=== PATIENT | male | born 1995 | race Caucasian/White ===

== ENCOUNTER 2022-04-18 13:47 | Emergency (ER) | payer SELFPAY ==
[2022-04-18] VITALS (17 sets, daily range): BP systolic 118–139; BP diastolic 77–89; PULSE 60–77; RESP 4–26; TEMP 36.6; O2SAT 92–98; BMI 19.0
--- NOTE | 2022-04-18 13:58 | ECG_ITS ---
[facility] Test Date: 2022-04-18 Pat Name: Toan Kwong Department: Room: Gender: Male Planning Lead: : 1995 Requested By: Celeste Roberson Order Number: [id number] Gann MD: Gregorio Sun M.D. Measurements Intervals [place] Rate: 70 P: 65 MA: 128 QRS: 93 QRSD: 89 T: 71 QT: 379 QTc: 411 Interpretive Statements SINUS RHYTHM BORDERLINE RIGHT AXIS DEVIATION [QRS AXIS > 90] MODERATE T-WAVE ABNORMALITY, CONSIDER ANTERIOR ISCHEMIA [-0.1+ mV T-WAVE IN V3/V4] No previous ECG available for comparison Electronically Signed On 04-18-2022 17:27:29 ONLINE MARKETING COORDINATOR by Gregorio Sun M.D. [id number] f
--- NOTE | 2022-04-18 14:07 | XRR_ITS ---
PROCEDURE INFORMATION: Exam: XR Chest Exam date and time: 04/18/2022 2:21 PM Age: 26 years old Clinical indication: Pain; Angina pectoris; Additional info: Chest pain TECHNIQUE: Imaging protocol: Radiologic exam of the chest. Views: 1 view. COMPARISON: No relevant prior studies available. FINDINGS: Lungs: Unremarkable. No consolidation. Pleural spaces: Unremarkable. No pleural effusion. No pneumothorax. Heart/Mediastinum: Unremarkable. No cardiomegaly. Bones/joints: Unremarkable for age. XR/XR chest 1V portable [id number] IMPRESSION: Negative chest
--- NOTE | 2022-04-18 14:21 | W.ED.CHESTPA ---
HPI - Chest Pain General: Chief Complaint: Chest Pain Stated Complaint: alana cyr Time Seen by Provider: 04/18/22 14:04 Source: patient Mode of arrival: ambulatory Limitations: no limitations History of Present Illness: Patient is a 26-year-old male who presents to ED today for evaluation of chest pain, nausea, vomiting. Patient states symptoms initially began on Saturday after eating. He felt like he got something stuck in his throat. He states he did feel like the sensation moved down but ever since then had intermittent pains in his chest with radiation into his left arm. He has also had several episodes of nausea and vomiting. He initially had some diarrhea but this has resolved. He reports pain as a tightness in his chest. He is also having a little bit of upper abdominal discomforts. He does report some previous symptoms that he attributes to acid reflux/GERD. Patient states he was concerned as he had a grandfather that at the age of 34 from a reported heart attack. He apparently was seen recently at a walk-in facility and had a EKG and CXR performed which were normal. Patient denies any risk factors for PE. Patient denies orthopnea, PND, lower extremity swelling, calf pain. No fevers. No recent illness. MD complaint: chest pain Onset (ago): day(s) Timing of current episode: episodic Pain location: substernal, left chest, epigastric and other (LUQ) Pain radiation: left arm Relieving factors: nothing Exacerbating factors: eating Associated symptoms: Reports abdominal pain, nausea and vomiting; Deny dyspnea, palpitations or syncope Treatment prior to arrival: none Risk Factors: Coronary artery disease risk factors: family history of CAD before age 50 Thoracic aortic dissection risk factors: none Review of Systems Eyes: Denies: change in vision, blurry vision, photophobia, floaters or seeing flashes ENMT: Denies: throat pain, odynophagia, ear or mastoid pain, nasal discharge or nasal congestion Card: Reports: chest pain; Denies: palpitations, irregular heart rhythm, edema, swelling of feet/ankles, lightheadedness, syncope, pre-syncope, dyspnea on exertion, orthopnea, leg pain with exertion or acrocyanosis Resp: Denies: dyspnea, productive cough, non-productive cough, wheezing, pain on inspiration, hemoptysis or chest congestion GI: Reports: abdominal pain, nausea, vomiting and diarrhea (a few days ago-resolved); Denies: hematemesis or change in bowel habits : Denies: flank pain, dysuria or hematuria Musc: Denies: neck pain, back pain, extremity pain or joint pain Skin/Breast: Denies: rash Neuro: Denies: headache(s), numbness in extremities, weakness in extremities, sensory changes, dizziness or confusion Physical Exam Const: COMMON NORMALS: no acute distress, average body habitus, patient oriented x3, no limitations, healthy appearing, alert and well nourished GENERAL APPEARANCE: cooperative ORIENTATION/CONSCIOUSNESS: Yes awake, Yes oriented to person, Yes oriented to place and Yes oriented to time HENMT: COMMON NORMALS: normocephalic and atraumatic HEAD & SCALP: normal to inspection, normocephalic and atraumatic Neck/C-Spine: COMMON NORMALS: full ROM, no lymphadenopathy and no meningeal signs GENERAL: Yes normal visual inspection Chest: COMMONS NORMALS: normal inspection of the chest and normal palpation of entire chest wall Resp: COMMON NORMALS: normal respiratory effort and clear to auscultation bilaterally AUSCULTATION: clear to auscultation bilaterally Cardio: COMMON NORMALS: regular rate and regular rhythm RATE: regular rate RHYTHM: regular rhythm GI: COMMON NORMALS: Normal to inspection, nondistended, normoactive bowel sounds present, Soft to palpation, No hepatosplenomegaly present and no masses INSPECTION: Yes normal to inspection AUSCULTATION: Yes normoactive bowel sounds PALPATION: Yes Soft to palpation, Yes Tenderness to palpation present (GI) (upper abdomen ), No Guarding due to palpation present (GI), No Rigid due to palpation and Yes No hepatosplenomegaly present : COMMON NORMALS: Yes no CVA tenderness BLADDER/KIDNEY EXAM: Yes no CVA tenderness Back/Pelvis: COMMON NORMALS: no CVA tenderness, thoracic and lumbar spine normal to inspection, no thoracic nor lumbar tenderness and thoraco-lumbar ROM normal Extremity: COMMON NORMALS: normal to inspection and full ROM GENERAL: Yes normal exam except as noted Neuro: MARIBELL COMA SCALE: document GCS findings Maribell coma scale eye opening: Spontaneous [place]ell coma scale verbal response: Orientated [place] coma scale motor response: Obey commands [place] coma scale total score: 15 COMMON NORMALS: patient oriented x3, moves all extremities, no focal motor deficits, no sensory deficits noted and gait normal SENSORIUM/ORIENTATION: Yes alert, Yes oriented to person, Yes oriented to place and Yes oriented to time MENINGEAL SIGNS: Yes no meningeal signs Skin: COMMON NORMALS: no rashes or lesions noted GENERAL SKIN EXAM: no rashes or lesions noted Course Vital Signs: Vital signs: Vital Signs Temperature 97.8 F 04/18/22 13:50 Pulse Rate 62 04/18/22 15:30 Respiratory Rate 6 L 04/18/22 15:30 Blood Pressure 120/83 04/18/22 15:30 Pulse Oximetry 94 04/18/22 15:30 Oxygen Delivery Me thod 04/18/22 14:35 MDM - Chest Pain Medical Decision Making Patient feels like the GI cocktail given here had did vastly improve his symptoms. After speaking to patient further he did have an echocardiogram at some point roughly around the age of 15 that was reportedly normal. EKG here showing no acute ischemia. Troponins are negative. Vital signs are stable. Remainder of blood work is unremarkable. Patient states he did start some Prilosec 1 to 2 days ago. Recommend he continues this medication and begins taking an H2 fernanda as well. Recommend follow-up with his primary care provider in the next 1 to 2 weeks if symptoms persist. Strict return ED precautions given. Lab Data 04/18/22 14:25 04/18/22 14:25 Radiology Impressions Chest X-Ray 04/18/22 14:07 IMPRESSION: Negative chest Laboratory Results WBC 6.3 10^3/uL (4.0-10.0) 04/18/22 14:25 RBC 5.23 10^6/uL (4.1-5.3) 04/18/22 14:25 Hgb 16.4 g/dL (11.7-16.6) 04/18/22 14:25 Hct 44.6 % (42.0-52.0) 04/18/22 14:25 MCV 85.3 fl (80-94) 04/18/22 14:25 MCH 31.4 pg (28.0-34.0) 04/18/22 14:25 MCHC 36.8 g/dL (30.0-36.0) H 04/18/22 14:25 RDW 11.1 % (12.1-15.1) L 04/18/22 14:25 Plt Count 383 10^3/cmm (130-400) 04/18/22 14:25 MPV 9.3 fL (7.4-10.4) 04/18/22 14:25 Neut % (Auto) 60.3 % 04/18/22 14:25 Lymph % (Auto) 30.3 % 04/18/22 14:25 [place] % (Auto) 7.9 % 04/18/22 14:25 Eos % (Auto) 0.3 % 04/18/22 14:25 Baso % (Auto) 0.9 % 04/18/22 14:25 Neut # (Auto) 3.81 10^3/uL (1.8-7.7) 04/18/22 14:25 Lymph # (Auto) 1.9 10^3/uL (0.8-4.8) 04/18/22 14:25 [place] # (Auto) 0.5 10^3/uL (0.2-0.9) 04/18/22 14:25 Eos # (Auto) 0.0 10^3/uL (0.0-0.8) 04/18/22 14:25 Baso # (Auto) 0.1 10^3/uL (0.0-0.1) 04/18/22 14:25 Nucleated RBC % (auto) 0 % 04/18/22 14:25 Nucleated RBCs # 0.0 /100WBC 04/18/22 14:25 Sodium 140 mmol/L (136-145) 04/18/22 14:25 Potassium 3.6 mmol/L (3.5-5.1) 04/18/22 14:25 Chloride 101 mmol/L (98-107) 04/18/22 14:25 Carbon Dioxide 26 mmol/L (22-29) 04/18/22 14:25 Anion Gap 16.6 (5-19) 04/18/22 14:25 BUN 8 mg/dL (6-20) 04/18/22 14:25 Creatinine 0.9 mg/dL (0.7-1.2) 04/18/22 14:25 GFR Calculation 100.5 mL/min (90-130) 04/18/22 14:25 Glucose 111 mg/dL (65-115) 04/18/22 14:25 Calculated Osmolality 289 mOsm/kg (285-295) 04/18/22 14:25 Calcium 10.1 mg/dL (8.5-10.5) 04/18/22 14:25 Total Bilirubin 0.9 mg/dL (0.15-1.2) 04/18/22 14:25 AST 16 U/L (0-40) 04/18/22 14:25 ALT 16 U/L (0-41) 04/18/22 14:25 Alkaline Phosphatase 57 U/L (40-130) 04/18/22 14:25 Troponin T Baseline 6 ng/L (0-15) 04/18/22 14:25 Total Protein 7.8 g/dL (6.6-8.7) 04/18/22 14:25 Albumin 4.9 g/dL (3.5-5.2) 04/18/22 14:25 Globulin 2.9 g/dL (1.3-4.6) 04/18/22 14:25 Lipase 15 U/L (13-60) 04/18/22 14:25 Discharge Plan Discharge Patient Disposition: Home Clinical Impression: Chest pain due to GERD Condition: Stable Prescriptions: No Action ondansetron HCl 4 mg tablet 4 mg PO Q6H PRN (Reason: Nausea) omeprazole 20 mg Capsule,Delayed Release(Dr/Ec) 20 mg PO DAILY Discharge Orders: Discharge ED (Routine); Ordered 04/18/22 Ordered By: Celeste Roberson Coding Level of Care Code ED Emergency Department Rn for Bri Bedolla
[2022-04-18] MEDS: lidocaine 2% viscous 15 ML, aluminum-mag hydrox-simethicon 30 ML, sucralfate oral liq 1 GM PO (14:42)
[2022-04-18 14:56] LABS: Basophils # 0.1 10^3/uL (0.0-0.1); Basophils % 0.9 %; Eosinophils % 0.3 %; Hematocrit 44.6 % (42.0-52.0); Hemoglobin 16.4 g/dL (11.7-16.6); Lymphocytes # 1.9 10^3/uL (0.8-4.8); Lymphocytes % 30.3 %; Mean Corpuscular HGB Conc 36.8 g/dL (30.0-36.0); Mean Corpuscular Hemoglobin 31.4 pg (28.0-34.0); Mean Corpuscular Volume 85.3 fl (80-94); Mean Platelet Volume 9.3 fL (7.4-10.4); Monocytes # 0.5 10^3/uL (0.2-0.9); Monocytes % 7.9 %; Neutrophils # 3.81 10^3/uL (1.8-7.7); Neutrophils % 60.3 %; Nucleated Red Blood Cells % 0 %; Platelet Count 383 10^3/cmm (130-400); Red Blood Count 5.23 10^6/uL (4.1-5.3); Red Cell Distribution Width 11.1 % (12.1-15.1); White Blood Count 6.3 10^3/uL (4.0-10.0)
[2022-04-18 15:04] LABS: Troponin(5th) Baseline 6 ng/L (0-15)
[2022-04-18 15:06] LABS: Alanine Aminotransferase 16 U/L (0-41); Albumin Level 4.9 g/dL (3.5-5.2); Alkaline Phosphatase 57 U/L (40-130); Anion Gap 16.6 (5-19); Aspartate Amino Transferase 16 U/L (0-40); Blood Urea Nitrogen 8 mg/dL (6-20); Calcium 10.1 mg/dL (8.5-10.5); Carbon Dioxide 26 mmol/L (22-29); Chloride 101 mmol/L (98-107); Creatinine Clr Calc Pharmacy 109.7583; Globulin 2.9 g/dL (1.3-4.6); Glomerular Filtration Rate 100.5 mL/min (90-130); Glucose 111 mg/dL (65-115); Lipase 15 U/L (13-60); Osmolality Calculated 289 mOsm/kg (285-295); Potassium 3.6 mmol/L (3.5-5.1); Sodium 140 mmol/L (136-145); Total Bilirubin 0.9 mg/dL (0.15-1.2); Total Protein 7.8 g/dL (6.6-8.7)
== END 2022-04-18 16:28 | disposition home or self-care (01) ==
PROVIDERS: Emergency Provider Physician Assistant
DX: K21.9 Gastro-esophageal reflux disease without esophagitis (principal)
CPT/HCPCS: 71045; 80053; 83690; 84484; 85025; 93005; 99285

== ENCOUNTER 2022-08-03 01:05 | Inpatient (IN) | payer SELFPAY ==
[2022-08-03] VITALS (46 sets, daily range): BP systolic 112–137; BP diastolic 56–81; PULSE 54–74; RESP 9–29; TEMP 36.4–37.1; O2SAT 95–99; BMI 19.0
--- NOTE | 2022-08-03 01:11 | ED_ITS ---
HPI - General Adult General: Chief complaint: Recheck/Abnormal Lab/Rx Stated complaint: High blood suger Time Seen by Provider: 08/03/22 01:08 History of Present Illness: 27-year-old male patient comes in today for complaints of increased thirst and urination for 1 week. Tonight he was at some family's house and they checked his blood glucose and it showed high on the reader. Family encouraged him to come in to be evaluated for concerns of ketoacidosis. Patient reports some in creased thirst and some lethargy for the last week. Patient was spilling some ketones in his urine as reported by family. Associated symptoms: Deny chest pain, dyspnea, headache(s), nausea, rash or vomiting Review of Systems General: Reports: 10 or more systems reviewed and unremarkable except in HPI and below Const: Denies: fever(s) or chills Card: Denies: chest pain Resp: Denies: dyspnea GI: Denies: nausea, vomiting, diarrhea or constipation : Denies: difficulty urinating Musc: Denies: neck pain or back pain Skin/Breast: Denies: rash Neuro: Denies: headache(s) Endo: Reports: polyuria and polydipsia Physical Exam Const: COMMON NORMALS: alert HENMT: COMMON NORMALS: normocephalic HEAD & SCALP: normocephalic Neck/C-Spine: COMMON NORMALS: full ROM Resp: COMMON NORMALS: normal respiratory effort and clear to auscultation bilaterally AUSCULTATION: clear to auscultation bilaterally Cardio: COMMON NORMALS: regular rate and regular rhythm RATE: regular rate RHYTHM: regular rhythm GI: COMMON NORMALS: non-tender Back/Pelvis: COMMON NORMALS: thoracic and lumbar spine normal to inspection Extremity: COMMON NORMALS: full ROM Neuro: SENSORIUM/ORIENTATION: Yes alert Skin: COMMON NORMALS: turgor normal GENERAL SKIN EXAM: turgor normal Course ED course: 141, reviewed ABG and ketones with Dr. Luque. He recommended infusing 2 L of IV fluids. I had already given 6 units subcu of Humalog. We will await r sherif of labs and consider further treatment then. Vital Signs: Vital signs: Vital Signs Temperature 98.7 F 08/03/22 01:10 Pulse Rate 67 08/03/22 01:17 Respiratory Rate 16 08/03/22 01:17 Blood Pressure 137/81 08/03/22 01:17 Pulse Oximetry 96 08/03/22 01:17 Oxygen Delivery Me thod Room Air 08/03/22 01:17 MDM - General Adult Medical Decision Making 27-year-old male patient comes in today for complaints of increased thirst and increased urine output and a elevated blood glucose on a home meter. On exam patient appears nontoxic. Abdomen soft nontender. Skin is warm and dry. Vital signs are normal. Initial blood glucose by fingerstick was 552. Differential diagnosis includes but not limited to DKA, hyperglycemia, pancreatitis. Blood glucose was 505 on lab, gap was 27, patient was given 2 L of IV fluids and 6 units of insulin per subcutaneous. Patient was monitored ABGs noted to 7.27, and serum ketones was positive. Reviewed with Dr. Luque who recommended admission. Talk with Dr. Osborn she agreed to plan for admission and recommended ICU bed with insulin drip. Patient was started on insulin drip and agreed to plan for treatment. Lab Data 08/03/22 01:20 08/03/22 01:20 Laboratory Results WBC 7.0 10^3/uL (4.0-10.0) 08/03/22 01:20 RBC 5.40 10^6/uL (4.1-5.3) H 08/03/22 01:20 Hgb 16.2 g/dL (11.7-16.6) 08/03/22 01:20 Hct 45.1 % (42.0-52.0) 08/03/22 01:20 MCV 83.5 fl (80-94) 08/03/22 01:20 MCH 30.0 pg (28.0-34.0) 08/03/22 01:20 MCHC 35.9 g/dL (30.0-36.0) 08/03/22 01:20 RDW 11.7 % (12.1-15.1) L 08/03/22 01:20 Plt Count 342 10^3/cmm (130-400) 08/03/22 01:20 MPV 9.7 fL (7.4-10.4) 08/03/22 01:20 Neut % (Auto) 45.0 % 08/03/22 01:20 Lymph % (Auto) 44.0 % 08/03/22 01:20 [place] % (Auto) 7.8 % 08/03/22 01:20 Eos % (Auto) 1.9 % 08/03/22 01:20 Baso % (Auto) 1.0 % 08/03/22 01:20 Neut # (Auto) 3.14 10^3/uL (1.8-7.7) 08/03/22 01:20 Lymph # (Auto) 3.1 10^3/uL (0.8-4.8) 08/03/22 01:20 [place] # (Auto) 0.5 10^3/uL (0.2-0.9) 08/03/22 01:20 Eos # (Auto) 0.1 10^3/uL (0.0-0.8) 08/03/22 01:20 Baso # (Auto) 0.1 10^3/uL (0.0-0.1) 08/03/22 01:20 Nucleated RBC % (auto) 0 % 08/03/22 01:20 Nucleated RBCs # 0.0 /100WBC 08/03/22 01:20 Specimen Type Arterial 08/03/22 01:26 Sample Site Radial, right 08/03/22 01:26 ABG pH 7.29 (7.35-7.45) L 08/03/22 01:26 ABG pCO2 38.4 mmHg (35-45) 08/03/22 01:26 ABG pO2 82.0 mmHg (80.0-100.0) 08/03/22 01:26 ABG HCO3 18.3 mmol/L (22-26) L 08/03/22 01:26 ABG Base Excess -7.7 mmol/L (-2.0-2.0) L 08/03/22 01:26 [place]mond Test Pos 08/03/22 01:26 Hematocrit 50.9 % (42-52) 08/03/22 01:26 O2 Delivery Device None 08/03/22 01:26 FiO2 21.0 % 08/03/22 01:26 Novelty Balloon Assembler And Packer ID [email or web address] 08/03/22 01:26 Sodium 131 mmol/L (136-145) L 08/03/22 01:20 Potassium 4.1 mmol/L (3.5-5.1) 08/03/22 01:20 Chloride 90 mmol/L (98-107) L 08/03/22 01:20 Carbon Dioxide 18 mmol/L (22-29) L 08/03/22 01:20 Anion Gap 27.1 (5-19) H 08/03/22 01:20 BUN 18 mg/dL (6-20) 08/03/22 01:20 Creatinine 0.8 mg/dL (0.7-1.2) 08/03/22 01:20 GFR Calculation 114.3 mL/min (90-130) 08/03/22 01:20 Glucose 505 mg/dL (65-115) H* 08/03/22 01:20 POC Glucose 552 mg/dL (70-110) H* 08/03/22 01:13 Calculated Osmolality 296 mOsm/kg (285-295) H 08/03/22 01:20 Calcium 9.7 mg/dL (8.5-10.5) 08/03/22 01:20 Total Bilirubin 0.5 mg/dL (0.15-1.2) 08/03/22 01:20 AST 16 U/L (0-40) 08/03/22 01:20 ALT 30 U/L (0-41) 08/03/22 01:20 Alkaline Phosphatase 81 U/L (40-130) 08/03/22 01:20 Total Protein 7.7 g/dL (6.6-8.7) 08/03/22 01:20 Albumin 5.0 g/dL (3.5-5.2) 08/03/22 01:20 Globulin 2.7 g/dL (1.3-4.6) 08/03/22 01:20 Lipase 21 U/L (13-60) 08/03/22 01:20 Urine Color Light yellow (Yellow) 08/03/22 01:39 Urine Appearance Clear (CLEAR) 08/03/22 01:39 Urine pH 5 (5-7) 08/03/22 01:39 Ur Specific [place] 1.020 (1.005-1.030) 08/03/22 01:39 Urine Protein Neg (Negative) 08/03/22 01:39 Urine Glucose (UA) 4+ (Normal) H 08/03/22 01:39 Urine Ketones 3+ (Negative) H 08/03/22 01:39 Urine Blood Neg (Negative) 08/03/22 01:39 Urine Nitrate Negative (Negative) 08/03/22 01:39 Urine Bilirubin Neg (Negative) 08/03/22 01:39 Urine Urobilinogen Norm mg/dL (Negative) 08/03/22 01:39 Ur Leukocyte Esterase Negative (Negative) 08/03/22 01:39 Serum Ketones Positive (Negative) H 08/03/22 01:20 Discharge Plan Discharge Patient Disposition: Admitted As Inpatient Clinical Impression: DKA (diabetic ketoacidosis) Condition: Stable Coding Level of Care Code ED Stereoplotter Operator for Bri Bedolla
[2022-08-03 01:16] LABS: Glucose Point of Care 552 mg/dL (70-110)
[2022-08-03 01:28] LABS: Basophils # 0.1 10^3/uL (0.0-0.1); Eosinophils # 0.1 10^3/uL (0.0-0.8); Eosinophils % 1.9 %; Hematocrit 45.1 % (42.0-52.0); Hemoglobin 16.2 g/dL (11.7-16.6); Lymphocytes # 3.1 10^3/uL (0.8-4.8); Mean Corpuscular HGB Conc 35.9 g/dL (30.0-36.0); Mean Corpuscular Volume 83.5 fl (80-94); Mean Platelet Volume 9.7 fL (7.4-10.4); Monocytes # 0.5 10^3/uL (0.2-0.9); Monocytes % 7.8 %; Neutrophils # 3.14 10^3/uL (1.8-7.7); Nucleated Red Blood Cells % 0 %; Platelet Count 342 10^3/cmm (130-400); Red Cell Distribution Width 11.7 % (12.1-15.1)
[2022-08-03 01:34] LABS: ABG PCO2 38.4 mmHg (35-45); ABG PH Result 7.29 (7.35-7.45); Arterial Blood Gas Hematocrit 50.9 % (42-52); Base Excess ABG -7.7 mmol/L (-2.0-2.0); Blood Gas Allen Test Pos; Blood Gas Sample Type Arterial; HCO3 ABG 18.3 mmol/L (22-26)
[2022-08-03 01:35] LABS: Blood Gas Sample Site Radial, right
[2022-08-03] MEDS: insulin lispro 100 unit/1 mL 6 UNIT SUBCUT (01:37)
[2022-08-03] MEDS: sodium chloride 0.9% 1,000 ML 999 ML IV ×2 (01:37→01:54)
[2022-08-03 01:38] LABS: Ketone (Acetest) Serum Positive (Negative)
[2022-08-03 01:52] LABS: Add Urine Microscopic? NO; Charge for UA Resulting for Rev
[2022-08-03 01:56] LABS: Bilirubin Urine Neg (Negative); Blood Urine Neg (Negative); Glucose Urine UA 4+ (Normal); Ketones Urine 3+ (Negative); Nitrate Urine Negative (Negative); Protein Urine Neg (Negative); Urine Appearance Clear (CLEAR); Urine Color Light yellow (Yellow); pH Urine 5 (5-7)
[2022-08-03 01:57] LABS: Leukocyte Esterase Urine Negative (Negative); Urobilinogen Urine Norm (Negative)
[2022-08-03 02:15] LABS: Alanine Aminotransferase 30 U/L (0-41); Alkaline Phosphatase 81 U/L (40-130); Anion Gap 27.1 (5-19); Aspartate Amino Transferase 16 U/L (0-40); Blood Urea Nitrogen 18 mg/dL (6-20); Calcium 9.7 mg/dL (8.5-10.5); Carbon Dioxide 18 mmol/L (22-29); Chloride 90 mmol/L (98-107); Globulin 2.7 g/dL (1.3-4.6); Glomerular Filtration Rate 114.3 mL/min (90-130); Lipase 21 U/L (13-60); Osmolality Calculated 296 mOsm/kg (285-295); Potassium 4.1 mmol/L (3.5-5.1); Sodium 131 mmol/L (136-145); Total Bilirubin 0.5 mg/dL (0.15-1.2); Total Protein 7.7 g/dL (6.6-8.7)
[2022-08-03 02:17] LABS: Glucose 505 mg/dL (65-115)
--- NOTE | 2022-08-03 02:23 | PM.HP ---
Providers/Chief Complaint Chief Complaint: High blood suger History of Present Illness Toan Kwong is a 27 year old male with no significant past medical history presented to the ER today with complaint of high blood sugar. He has been feeling generally weak and fatigued with increasing thirst over the last few days. One of his family members had a glucometer and checked his blood sugar which read high. He has not had any nausea vomiting. Denies any chest pain. Denies diarrhea, denies shortness of breath. Family reported that patient was spilling ketones in his urine. He has been having increasing urination over the last 1 week as well. He has never been diagnosed with diabetes before. On arrival to ER 137/81, respirate 16, pulse 67, temperature 98.7, saturating 96% on room air. He did get initially 2 L normal saline bolus and 6 units of Humalog. Labs showed WBC 7.0, hemoglobin 16.2, platelets 342, initial gas 7.29/38.4/82, 18. Serum ketones are positive. Initial blood glucose on arrival 505. Sodium 131, chloride 90, potassium 4.1, anion gap 27.1, carbon oxide 18. Urine shows 4+ glucose 3+ ketones. Medications/Allergies Home Medications Medication Instructions Recorded Confirmed Last Taken Type omeprazole 20 mg capsule,delayed 20 mg PO DAILY 04/18/22 04/18/22 04/18/22 History release ondansetron HCl 4 mg tablet 4 mg PO Q6H PRN Nausea 04/18/22 04/18/22 04/18/22 History Allergies Allergy/AdvReac Type Severity Reaction Status Date / Time No Known Allergies Allergy Verified 08/03/22 01:17 Vitals/I&O/Wt Last Vital Signs Temp 98.7 F 08/03/22 01:10 Pulse 67 08/03/22 01:17 Resp 16 08/03/22 01:17 BP 137/81 08/03/22 01:17 Pulse Ox 96 08/03/22 01:17 O2 Del Method Room Air 08/03/22 01:17 Weight last 48 hrs Weight 63.503 kg Physical Exam Narrative: General: Alert oriented x3, patient seen laying in bed, no acute respiratory distress. HEENT: Normocephalic, atraumatic, EOMI, breathing on room air Cardio: Regular rate rhythm, normal S1-S2 Respiratory: Clear to auscultation bilaterally GI: Abdomen soft, nontender, bowel sounds + Behavior: Appropriate and cooperative Extremities: No edema Data 08/03/22 01:20 08/03/22 01:20 A&P Assessment and plan (1) DKA (diabetic ketoacidosis): (2) Hyperglycemia: (3) Diabetes mellitus: Plan #Hyperglycemia, new onset #DKA #New onset diabetes, most likely type I ? Check baseline chest x-ray, troponins, blood culture, urine culture ? Start insulin drip. Add dextrose to fluids once glucose less than 250 ? Anion gap is 27.1. Continue drip until gap is closed. ? Normal saline +20 of K at 150 cc/h ? Check hemoglobin A1c, lipid profile, TSH, cortisol level ? Check anti-URSULA 1 antibodies ? Start DKA protocol ? Administer an additional normal saline bolus. Patient did get 2 L bolus normal saline in the ER already. ? Glucose every hour as per protocol ? Zofran for nausea if needed ? BMP every 4 hours. ? Bicarb is 18 at this time. No need to start on bicarb drip. ? Admit to ICU ? Endocrinology referral at discharge - Will need to provide diabetic teaching PTD Full code SCDs, low risk, no need of dvt ppx Attestations Medical Necessity Statement*: Greater than 2 midnight stay for management of DKA, new onset diabetes in ICU setting Coding Level of Care Code G0425 (30 min) TH Encounter Time (min): 40 Patient seen via Telehealth in the acute care setting (hospital or ED location) by agreement and consent of patient or patient food service sales representatives. Telehealth technology used during the visit includes video and audio. This patient encounter is appropriate and reasonable under the circumstances given the patient?s particular presentation at this time. The patient has been advised of the potential risks and limitations of this mode of treatment (including but not limited to the absence of in-person examination at this time) and has agreed to be treated by an off-site physician for this visit. If deemed clinically necessary from this telehealth visit, or if condition or consent for telehealth visit changes, an in-person visit will be arranged. For this encounter, total time for the origination of telehealth care on this date is as shown. Diagnoses DKA (diabetic ketoacidosis) E11.10 Hyperglycemia R73.9 Diabetes mellitus E11.9
--- NOTE | 2022-08-03 02:31 | ECG_ITS ---
[facility] Test Date: 2022-08-03 Pat Name: Toan Kwong Department: Room: ICU06 Gender: Male Can Labeler: : 1995 Requested By: Lizzie Osborn Order Number: [id number] Sanjuanita MD: Gregorio Sun M.D. Measurements Intervals [place] Rate: 50 P: 55 WI: 131 QRS: 83 QRSD: 103 T: 49 QT: 461 QTc: 424 Interpretive Statements SINUS BRADYCARDIA MODERATE ST DEPRESSION [0.05+ mV ST DEPRESSION] Compared to ECG 04/18/2022 13:58:33 ST (T wave) deviation now present Sinus rhythm no longer present T-wave abnormality no longer present Possible ischemia no longer present Electronically Signed On 08-03-2022 10:28:17 CDT by Gregorio Sun M.D. [id number]
--- NOTE | 2022-08-03 02:31 | XRR_ITS ---
PROCEDURE INFORMATION: Exam: XR Chest Exam date and time: 08/03/2022 2:40 AM Age: 27 years old Clinical indication: Other: Dka; Additional info: Dka, baseline TECHNIQUE: Imaging protocol: Radiologic exam of the chest. Views: 1 view. COMPARISON: CR XR chest 1V portable [id number] 04/18/2022 2:21 PM FINDINGS: Lungs: Unremarkable. No consolidation. Pleural spaces: Unremarkable. No pleural effusion. No pneumothorax. Heart/Mediastinum: Unremarkable. No cardiomegaly. Bones/joints: Unremarkable. XR/XR chest 1V portable [id number] IMPRESSION: No acute findings.
[2022-08-03 02:33] LABS: Glucose Point of Care 446 mg/dL (70-110)
[2022-08-03] MEDS: insulin regular-human 250 UNIT in sodium chloride 0.9% 250 ML 11.5 UNIT IV (02:40)
[2022-08-03 03:17] LABS: Troponin(5th) Baseline 6 ng/L (0-15)
[2022-08-03 03:27] LABS: Procalcitonin 0.06 ng/mL (0-0.5); Thyroid Stimulating Hormone 4.09 uIU/mL (0.27-4.20)
[2022-08-03 03:30] LABS: Estmated Average Glucose 278; Hemoglobin A1C 11.3 % (4.0-6.0)
[2022-08-03] MEDS: sodium chlor 0.9% + KCl 20 mEq 20 MEQ/1,000 ML BAG 150 MEQ IV (03:32)
[2022-08-03 03:35] LABS: Phosphorus 3.5 mg/dL (2.5-4.5)
[2022-08-03 03:37] LABS: Magnesium 1.8 mg/dL (1.7-2.3)
[2022-08-03 03:43] LABS: Glucose Point of Care 318 mg/dL (70-110)
--- NOTE | 2022-08-03 04:31 | ECG_ITS ---
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 Measurements Intervals [place] Rate: 60 P: 72 UT: 155 QRS: 88 QRSD: 113 T: 50 QT: 438 QTc: 440 Interpretive Statements SINUS RHYTHM MODERATE INTRAVENTRICULAR CONDUCTION DELAY [110+ ms QRS DURATION] ST DEVIATION AND MODERATE T-WAVE ABNORMALITY, CONSIDER ANTERIOR ISCHEMIA [-0.1+ mV T-WAVE IN V3/V4] Compared to ECG 08/03/2022 02:40:49 Intraventricular conduction delay now present T-wave abnormality now present Possible ischemia now present Sinus bradycardia no longer present ST (T wave) deviation no longer present Electronically Signed On 08-03-2022 10:29:09 CDT by Gregorio Sun M.D. [email or web address]/store/[id number]
[2022-08-03 04:34] LABS: Anion Gap 17.4 (5-19); Blood Urea Nitrogen 15 mg/dL (6-20); Calcium 7.7 mg/dL (8.5-10.5); Carbon Dioxide 20 mmol/L (22-29); Chloride 104 mmol/L (98-107); Chol HDL Ratio 5.74 mg/dL (1.0-5.00); Cholesterol 155 mg/dL (0-200); Glomerular Filtration Rate 99.8 mL/min (90-130); Glucose 281 mg/dL (65-115); HDL Cholesterol 27 mg/dL (60-100); Osmolality Calculated 297 mOsm/kg (285-295); Potassium 3.4 mmol/L (3.5-5.1); Sodium 138 mmol/L (136-145); Triglycerides 418 mg/dL (0-150); VLDL Cholestrol Calculation 84 mg/dL (0-30)
[2022-08-03 04:37] LABS: Cortisol Random 7.14 ug/dL (2.47-19.5)
[2022-08-03 05:05] LABS: Troponin 5 2HR Delta 0 ABS# (0-10)
[2022-08-03 05:09] LABS: Glucose Point of Care 250 mg/dL (70-110)
[2022-08-03 05:11] LABS: LDL Cholesterol Direct 61 mg/dL (0-100)
[2022-08-03] MEDS: dextrose 5% 1,000 ML 150 ML IV (05:30)
[2022-08-03] MEDS: sodium chlor 0.9% + KCl 40 mEq 40 MEQ/1,000 ML BAG 150 MEQ IV (05:31)
[2022-08-03 05:57] LABS: Glucose Point of Care 181 mg/dL (70-110)
[2022-08-03 06:53] LABS: Glucose Point of Care 163 mg/dL (70-110)
[2022-08-03 07:05] LABS: Anion Gap 13.2 (5-19); Blood Urea Nitrogen 14 mg/dL (6-20); Calcium 7.9 mg/dL (8.5-10.5); Carbon Dioxide 22 mmol/L (22-29); Chloride 105 mmol/L (98-107); Glomerular Filtration Rate 159.3 mL/min (90-130); Glucose 155 mg/dL (65-115); Osmolality Calculated 288 mOsm/kg (285-295); Potassium 3.2 mmol/L (3.5-5.1); Sodium 137 mmol/L (136-145)
[2022-08-03 08:11] LABS: Glucose Point of Care 98 mg/dL (70-110)
[2022-08-03] MEDS: pantoprazole 40 mg SDV IVP (09:05)
[2022-08-03 09:16] LABS: Glucose Point of Care 88 mg/dL (70-110)
[2022-08-03 09:55] LABS: Glucose Point of Care 228 mg/dL (70-110)
[2022-08-03 10:29] LABS: Anion Gap 13.7 (5-19); Blood Urea Nitrogen 11 mg/dL (6-20); Calcium 7.5 mg/dL (8.5-10.5); Carbon Dioxide 23 mmol/L (22-29); Chloride 104 mmol/L (98-107); Glomerular Filtration Rate 133.3 mL/min (90-130); Glucose 175 mg/dL (65-115); Osmolality Calculated 288 mOsm/kg (285-295); Potassium 3.7 mmol/L (3.5-5.1); Sodium 137 mmol/L (136-145)
[2022-08-03 10:53] LABS: Glucose Point of Care 213 mg/dL (70-110)
--- NOTE | 2022-08-03 10:56 | ECG_ITS ---
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 Measurements Intervals [place] Rate: 62 P: 52 MA: 131 QRS: 83 QRSD: 105 T: 52 QT: 413 QTc: 420 Interpretive Statements SINUS RHYTHM NONSPECIFIC T-WAVE ABNORMALITY Compared to ECG 08/03/2022 05:09:30 Intraventricular conduction delay no longer present Possible ischemia no longer present T-wave abnormality still present Electronically Signed On 08-03-2022 13:07:23 CDT by Gregorio Sun M.D. [email or web address].[employer]/store/OM/[id number]
--- NOTE | 2022-08-03 11:07 | P.DS_ITS ---
Discharge Providers Date of Admission: 08/03/22 02:27 Date of Discharge: August 03, 2022 Attending Provider at Admission: Lizzie Osborn MD Attending Provider at Discharge: Geovanni Park MD Diagnoses at Discharge Discharge Diagnosis (1) DKA (diabetic ketoacidosis): Status: Acute (2) Hyperglycemia: Status: Acute (3) Diabetes mellitus: Status: Acute Reason for Visit Reason for Visit: High blood [facility] Hospital Course Hospital Course 27 year old male with no significant PMH came with c/o high blood sugar. Has also been feeling generalized weakness fatigue, excessive thirst increased urination, polyphagia, in the recent last few days, has also experienced about 10 pounds weight loss recently, one of his family members had a glucometer, which he used to check his fingerstick glucose which read as high, when he came to the ER he was found to be in DKA, was admitted for the management of the same, was on DKA protocol, once the anion gap closed, patient was transitioned to, long and short acting insulin, with appropriate bridge, upon discontinuing the insulin drip, at the time of discharge patient was, tolerating diet well, denied any nausea vomiting abdominal pain, he was discharged on metformin 500 mg p.o. twice daily, currently his HbA1c 11.3, which is greater than 9, he will possibly need insulin in near future for his diabetes. Patient triglyceride is also high:at 418, Possibly can be started on fenofibrate, and near future after obtaining a repeat T.G Level. He has been scheduled to see endocrine as outpatient, has been asked to maintain fingerstick glucose log at least with meals, and take it to the endocrine physician on appointment.Patient will also need a repeat HbA1c in 3 months. Overall responded well to above medical management and is being discharged in stable condition to home, will continue to see his PCP as outpatient. Physical Exam Const: COMMON NORMALS: patient oriented x3 HENMT: COMMON NORMALS: normocephalic, atraumatic and hearing grossly normal bilaterally HEAD & SCALP: normocephalic and atraumatic Resp: COMMON NORMALS: normal respiratory effort, No retractions, No use of accessory muscles and clear to auscultation bilaterally EFFORT & INSPECTION: Yes symmetric chest movement AUSCULTATION: clear to auscultation bilaterally Cardio: COMMON NORMALS: regular rate, regular rhythm, S1 normal heart sound present, S2 normal heart sound present, No gallops present (Cardio), No murmurs present (Cardio), No rub (Cardio) and Peripheral pulses 2+ throughout RATE: regular rate RHYTHM: regular rhythm HEART SOUNDS: S1 normal heart sound present and S2 normal heart sound present PERIPHERAL PULSES: Peripheral pulses 2+ throughout GI: COMMON NORMALS: Normal to inspection, nondistended, normoactive bowel sounds present, Soft to palpation, non-tender, No hepatosplenomegaly present and no masses AUSCULTATION: Yes normoactive bowel sounds PALPATION: Yes Soft to palpation and Yes No hepatosplenomegaly present RECTAL EXAM: Yes deferred Extremity: COMMON NORMALS: no clubbing, cyanosis or edema and no pedal edema Neuro: COMMON NORMALS: patient oriented x3 Discharge Data Studies Completed and Pending Completed Studies During Hospitalization Category Date Time Status XR chest 1V portable [id number] Stat Exams 08/03/22 02:31 Completed Pending at discharge Category Date Time Status BMP [Basic Metabolic Panel] Q4H Lab 08/03/22 14:31 Ordered BMP [Basic Metabolic Panel] Q4H Lab 08/03/22 18:31 Ordered BMP [Basic Metabolic Panel] Q4H Lab 08/03/22 22:31 Ordered BMP [Basic Metabolic Panel] Q4H Lab 08/04/22 02:31 Ordered BMP [Basic Metabolic Panel] Q4H Lab 08/04/22 06:31 Ordered Basic Metabolic Panel AM LABS Lab 08/04/22 04:00 Ordered Blood Culture Stat Lab 08/03/22 04:23 Results Complete Blood Count w/Auto AM LABS Lab 08/04/22 04:00 Ordered [id number] IA-2 Insulin AB Routine Lab 08/03/22 03:55 Received Sputum Culture and Gram Stain Stat Lab 08/03/22 02:31 Uncollected Urine Culture Stat Lab 08/03/22 01:39 Received Radiology Impressions Chest X-Ray 08/03/22 02:31 IMPRESSION: No acute findings. Laboratory Results WBC 7.0 10^3/uL (4.0-10.0) 08/03/22 01:20 RBC 5.40 10^6/uL (4.1-5.3) H 08/03/22 01:20 Hgb 16.2 g/dL (11.7-16.6) 08/03/22 01:20 Hct 45.1 % (42.0-52.0) 08/03/22 01:20 MCV 83.5 fl (80-94) 08/03/22 01:20 MCH 30.0 pg (28.0-34.0) 08/03/22 01:20 MCHC 35.9 g/dL (30.0-36.0) 08/03/22 01:20 RDW 11.7 % (12.1-15.1) L 08/03/22 01:20 Plt Count 342 10^3/cmm (130-400) 08/03/22 01:20 MPV 9.7 fL (7.4-10.4) 08/03/22 01:20 Neut % (Auto) 45.0 % 08/03/22 01:20 Lymph % (Auto) 44.0 % 08/03/22 01:20 [place] % (Auto) 7.8 % 08/03/22 01:20 Eos % (Auto) 1.9 % 08/03/22 01:20 Baso % (Auto) 1.0 % 08/03/22 01:20 Neut # (Auto) 3.14 10^3/uL (1.8-7.7) 08/03/22 01:20 Lymph # (Auto) 3.1 10^3/uL (0.8-4.8) 08/03/22 01:20 [place] # (Auto) 0.5 10^3/uL (0.2-0.9) 08/03/22 01:20 Eos # (Auto) 0.1 10^3/uL (0.0-0.8) 08/03/22 01:20 Baso # (Auto) 0.1 10^3/uL (0.0-0.1) 08/03/22 01:20 Nucleated RBC % (auto) 0 % 08/03/22 01:20 Nucleated RBCs # 0.0 /100WBC 08/03/22 01:20 Specimen Type Arterial 08/03/22 01:26 Sample Site Radial, right 08/03/22:26 ABG pH 7.29 (7.35-7.45) L 08/03/22:26 ABG pCO2 38.4 mmHg (35-45) 08/03/22 01: ABG pO2 82.0 mmHg (80.0-100.0) 08/03/22 01:26 ABG HCO3 18.3 mmol/L (22-26) L 08/03/22 01:26 ABG Base Excess -7.7 mmol/L (-2.0-2.0) L 08/03/22 01:26 [place] Test Pos 08/03/22 01:26 Hematocrit 50.9 % (42-52) 08/03/22 01:26 O2 Delivery Device None 08/03/22 01:26 FiO2 21.0 % 08/03/22 01:26 Secondary Teacher ID [email or web address] 08/03/22 01:26 Sodium 137 mmol/L (136-145) 08/03/22 10:00 Potassium 3.7 mmol/L (3.5-5.1) 08/03/22 10:00 Chloride 104 mmol/L (98-107) 08/03/22 10:00 Carbon Dioxide 23 mmol/L (22-29) 08/03/22 10:00 Anion Gap 13.7 (5-19) 08/03/22 10:00 BUN 11 mg/dL (6-20) 08/03/22 10:00 Creatinine 0.7 mg/dL (0.7-1.2) 08/03/22 10:00 GFR Calculation 133.3 mL/min (90-130) H 08/03/22 10:00 Glucose 175 mg/dL (65-115) H 08/03/22 10:00 POC Glucose 213 mg/dL (70-110) H 08/03/22 10:47 Estimat Average Glucose 278 08/03/22 01:20 Hemoglobin A1c 11.3 % (4.0-6.0) H 08/03/22 01:20 Calculated Osmolality 288 mOsm/kg (285-295) 08/03/22 10:00 Calcium 7.5 mg/dL (8.5-10.5) L 08/03/22 10:00 Phosphorus 3.5 mg/dL (2.5-4.5) 08/03/22 01:20 Magnesium 1.8 mg/dL (1.7-2.3) 08/03/22 01:20 Total Bilirubin 0.5 mg/dL (0.15-1.2) 08/03/22 01:20 AST 16 U/L (0-40) 06/09/23 01:20 ALT 30 U/L (0-41) 08/03/22 01:20 Alkaline Phosphatase 81 U/L (40-130) 08/03/22 01:20 Troponin T Baseline 6 ng/L (0-15) 08/03/22 01:20 Troponin T 120 Minute 6.00 ng/L (0-15) 08/03/22 03:55 Delta Troponin T 0 ABS# (0-10) 08/03/22 03:55 Troponin T Hi Sens 6Hr 6.70 ng/L (0-15) 08/03/22 08:16 Troponin T Hi Sens 6Hr Delta 0.70 ng/L (0-12) 08/03/22 08:16 Total Protein 7.7 g/dL (6.6-8.7) 08/03/22 01:20 Albumin 5.0 g/dL (3.5-5.2) 08/03/22 01:20 Globulin 2.7 g/dL (1.3-4.6) 08/03/22 01:20 Triglycerides 418 mg/dL (0-150) H 08/03/22 03:55 Cholesterol 155 mg/dL (0-200) 08/03/22 03:55 LDL Cholesterol Direct 61 mg/dL (0-100) 08/03/22 03:55 LDL Cholesterol, Calc Not Reportable 08/03/22 03:55 Total VLDL Cholesterol 84 mg/dL (0-30) H 08/03/22 03:55 HDL Cholesterol 27 mg/dL (60-100) L 08/03/22 03:55 Cholesterol/HDL Ratio 5.74 mg/dL (1.0-5.00) H 08/03/22 03:55 Lipase 21 U/L (13-60) 08/03/22 01:20 Procalcitonin Cancelled 08/03/22 03:55 TSH 4.09 uIU/mL (0.27-4.20) 08/03/22 01:20 Random Cortisol 7.14 ug/dL (2.47-19.5) 08/03/22 03:55 Urine Color Light yellow (Yellow) 08/03/22 01:39 Urine Appearance Clear (CLEAR) 08/03/22 01:39 Urine pH 5 (5-7) 08/03/22 01:39 Ur Specific [place] 1.020 (1.005-1.030) 08/03/22 01:39 Urine Protein Neg (Negative) 08/03/22 01:39 Urine Glucose (UA) 4+ (Normal) H 08/03/22 01:39 Urine Ketones 3+ (Negative) H 08/03/22 01:39 Urine Blood Neg (Negative) 08/03/22 01:39 Urine Nitrate Negative (Negative) 08/03/22 01:39 Urine Bilirubin Neg (Negative) 08/03/22 01:39 Urine Urobilinogen Norm mg/dL (Negative) 08/03/22 01:39 Ur Leukocyte Esterase Negative (Negative) 08/03/22 01:39 Serum Ketones Positive (Negative) H 08/03/22 01:20 Vitals Last Vital Signs Temp 97.6 F 08/03/22 03:25 Pulse 74 08/03/22 10:00 Resp 20 H 08/03/22 10:00 BP 114/72 08/03/22 09:30 Pulse Ox 96 08/03/22 09:30 O2 Del Method Room Air 08/03/22 03:54 Discharge Plan Discharge Patient Disposition: Home Condition: Stable Prescriptions: New metformin 500 mg tablet 500 mg PO BIDWMEAL Qty: 60 3RF (DME) Blood Glucose Monitoring Kit See Rx Instructions .Route Qty: 1 0RF Rx Instructions: As directed Discharge Orders: Discharge Order (Routine); Ordered 08/03/22 Ordered By: Geovanni Park Referrals: Amina Becker MD [Physician] - 08/23/22 10:45 am Discharge Diet: Diabetic Patient Instructions: Type 2 Diabetes, Metformin (By mouth) (Glucophage, Glucophage XR, Fortamet,..., Diabetic Ketoacidosis (DC), How to Check your Blood Sugar (DC), Opioid Safety Discharge Attestations Time Spent in Discharge Care*: less than 30 min Quality Metrics Clinical Quality Measures [ No reported AMI, CVA or VTE this stay] Coding Level of Care Code Acute Code for Chg Fwd Diagnoses DKA (diabetic ketoacidosis) E11.10 Hyperglycemia R73.9 Diabetes mellitus E11.9
[2022-08-03] MEDS: insulin lispro 100 unit/1 mL SUBCUT (11:21)
[2022-08-11 19:24] LABS: GAD Insulin Autoantibody <0.4 U/mL (<0.4); Glutamic Acid Decarboxylase 65 14 IU/mL (<5)
== END 2022-08-03 11:30 | disposition home or self-care (01) | DRG 639 ==
LOC: ER 02:31 → ICU 02:38
PROVIDERS: Admitting Provider Internal Medicine; Emergency Provider Nurse Practitioner Family; Visit Provider Internal Medicine
DX: E10.10 Type 1 diabetes mellitus with ketoacidosis without coma (principal)
CPT/HCPCS: 36415; 36416; 36600; 71045; 80048; 80053; 80061; 81003; 82009; 82533; 82803; 82962; 83036; 83690; 83721; 83735; 84100; 84145; 84443; 84484; 85025; 86337; 86341; 87040; 87086; 93005; 96365; 96367; 96372; 96375; 97161; 99285; C9113; J1815; J3480; J7030; J7050; J7070